=== PATIENT | female | born 1935 | race Caucasian/White ===

== ENCOUNTER → 2017-04-08 | Outpatient (CLI) | payer MEDICARE, OTHER ==
[2013-12-26 12:15] VITALS: BMI 27.1
[~2017-04-08] MED LIST: ACET-2031 PO; Aspirin PO; BISA10SU62 RC; CELE-1 PO; ESTR10TA4 VG; FAMO-67 PO; HYDR-389 PO; LEV112 PO; MOM PO; PROG100C16 PO; RIV10 PO
--- NOTE | 2017-04-09 10:26 | RADIOLOGY IMAGING REPORT ---
FACILITY: [facility] PATIENT NAME: JENA SCHAEFER : [id number] MR: [id number] V: [id number] EXAM DATE: [id number] ORDERING PHYSICIAN: ISHA TELLES TECHNOLOGIST: Dianne Green PROCEDURE:BILATERAL DIGITAL SCREENING MAMMOGRAM WITH CAD ASSISTED INTERPRETATION & 3D TOMOSYNTHESIS COMPARISON:Prior mammograms 02/27/12 INDICATIONS:SCREENING FINDINGS: Dense heterogeneous fibroglandular tissue is seen throughout the breasts. The parenchymal pattern has remained stable allowing for difference in mammographic technique & patient positioning. There is no evidence of malignant appearing mass, malignant appearing calcifications or other secondary sign of malignancy in either breast. DIAGNOSTIC CATEGORY 2--BENIGN FINDING. RECOMMENDATIONS: ROUTINE MAMMOGRAM AND CLINICAL EVALUATION. IMPRESSION: BIRADS 2: Benign finding No significant abnormality is seen Dictated by: Nara Mccauley M.D. on 04/08/2017 at 15:00 Transcribed by: TANNA on 04/08/2017 at 15:50 Approved by: Nara Mccauley M.D. on 04/09/2017 at 10:25 [facility]
== END ==
LOC: MAMO 01:58
PROVIDERS: ATTEND Family Medicine
DX: Z12.31 Encounter for screening mammogram for malignant neoplasm of breast (principal)
CPT/HCPCS: 77063; 77067

== ENCOUNTER → 2018-07-20 | Outpatient (CLI) | payer MEDICARE, OTHER ==
[2013-12-26 12:15] VITALS: BMI 27.1
[~2018-07-20] MED LIST changes: +IOPAMIDOL 76% 100 ML INFUS BTL 100 ML ONE; +PANT40TA65 PO
--- NOTE | 2018-07-20 12:35 | RADIOLOGY IMAGING REPORT ---
[place] [facility] [place] NAME: Jen Galdamez : 1935 MR: [id number] V: [id number] EXAM DATE: ORDERING PHYSICIAN: ISHA TELLES TECHNOLOGIST: Location: [facility] Patient: Jen Galdamez : 1935 Visit/Account:[id number] Date of Sevice: 07/20/2018 CT BRAIN WITH AND WITHOUT INDICATION: Altered mental status COMPARISON: None TECHNIQUE: Pre and postcontrast head CT performed with sagittal and coronal reformations. 75 mL Isov ue-370 injected. One of the following dose optimization techniques was utilized in the performance o f this exam: automated exposure control; adjustment of the mA and/or kV according to patient size; or use of iterative reconstruction technique. Specific details can be referenced in the facility's rad ioly CT exam operational policy. FINDINGS: The basal cisterns, alarcon-white differentiation and convexity sulci are maintained. No intracranial h emorrhage, hydrocephalus or midline shift. Normal orbital soft tissues. No apparent parenchymal abn ormality. Clear mastoid air cells, clear paranasal sinuses and normal osseous structures. Frontal r egion hyperostosis noted. No pathologic intracranial enhancement. No apparent significant vascular abnormality. IMPRESSION: Normal head CT without and with contrast. No acute finding. Report Dictated By: Demar Karimi MD at 07/20/2018 12:24 PM Report E-Signed By: Demar Karimi MD at 07/20/2018 12:30 PM WSN:[id number]
== END ==
LOC: CT 10:17
PROVIDERS: ATTEND Family Medicine
DX: R41.82 Altered mental status, unspecified (principal)
CPT/HCPCS: 70470; Q9967

== ENCOUNTER → 2018-07-21 | Outpatient (REF) | payer MEDICARE, OTHER ==
[2013-12-26 12:15] VITALS: BMI 27.1
[~2018-07-21] MED LIST changes: -IOPAMIDOL 76% 100 ML INFUS BTL 100 ML ONE
== END ==
LOC: ZZSENDIN 14:21
PROVIDERS: ATTEND Family Medicine
DX: R41.82 Altered mental status, unspecified (principal); B96.89 Other specified bacterial agents as the cause of diseases classified elsewhere
CPT/HCPCS: 81001; 87077; 87088; 87186

== ENCOUNTER → 2018-08-20 | Outpatient (CLI) | payer MEDICARE, OTHER ==
[2013-12-26 12:15] VITALS: BMI 27.1
--- NOTE | 2018-08-20 15:05 | RADIOLOGY IMAGING REPORT ---
FACILITY: [facility] [place] PATIENT NAME: Jen Galdamez : 1935 MR: [id number] V: [id number] EXAM DATE: ORDERING PHYSICIAN: DAYSI DURAND TECHNOLOGIST: [place] [facility] [place]: Jen Galdamez : 1935 Visit/Account:[id number] Date of Sevice: 08/20/2018 EXAMINATION: Right Lower Extremity Venous Ultrasound HISTORY: Swelling. TECHNIQUE: Ultrasound evaluation of the right lower extremity veins was performed with color and spe ctral Doppler and compression views. COMPARISON: None. FINDINGS: The right common femoral, femoral, proximal deep femoral, popliteal, and segmentally visualized deep calf veins are patent and compressible, without evidence of intraluminal thrombus. The visualized up per greater saphenous vein is patent. IMPRESSION: Normal exam. No evidence of DVT in the right leg. Report Dictated By: Neri Mullen MD at 08/20/2018 2:54 PM Report E-Signed By: Neri Mullen MD at 08/20/2018 2:59 PM WSN:[id number]
== END ==
LOC: US 14:11
PROVIDERS: ATTEND Physician Assistant
DX: R60.9 Edema, unspecified (principal); M79.661 Pain in right lower leg